=== PATIENT | female | born 1990 | race Caucasian/White ===

== ENCOUNTER 2021-05-14 07:10 | Inpatient (IN) | payer OTHER ==
[2021-05-14 09:06] VITALS: BMI 28.8
[2021-05-14] MEDS ORDERED: OXYTOCIN 30 UNITS in 0.9% NS 30 UNIT/500 ML INFUS.BAG IVPB ONE (09:15)
[2021-05-14 09:29] LABS: BASO % 0.4 % (0-2.0); EOS % 0.6 % (0-4.5); HEMATOCRIT 37.9 % (32.4-45.2); HEMOGLOBIN 13.3 GM/dL (10.7-15.3); LYMPH % 11.4 % (8-40); MCH 34.2 pg (25.7-33.7); MCHC 35.1 g/dl (32.0-36.0); MEAN CELL VOLUME 97.6 fl (80-96); MEAN PLT VOLUME 10.3 fl (7.5-11.1); MONO % 7.7 % (3.8-10.2); NEUT % 79.9 % (42.8-82.8); PLATELET COUNT 143 10^3/uL (134-434); RBC 3.89 M/mm3 (3.60-5.2); RDW 13.4 % (11.6-15.6); WHITE BLOOD COUNT 10.9 K/mm3 (4.0-10.0)
[2021-05-14] MEDS: OXYTOCIN 30 UNITS in 0.9% NS 30 UNIT/500 ML INFUS.BAG IVPB SCH (09:30)
[2021-05-14] MEDS: DEXTROSE 5%-LACTATED RINGERS 1,000 ML IV SCH ×2 (09:30→17:00)
[2021-05-14 09:46] LABS: CALCIUM 8.3 mg/dL (8.5-10.1)
[2021-05-14 09:47] LABS: BLOOD UREA NITROGEN 14.3 mg/dL (7-18)
[2021-05-14 09:50] LABS: CREATININE 0.9 mg/dL (0.55-1.3)
[2021-05-14 10:46] LABS: HIV INTERPRETATION NEGATIVE (NEGATIVE)
[2021-05-14] MEDS ORDERED: PCA PUMP NR ONE (20:29)
[2021-05-14] MEDS ORDERED: FENTANYL/BUPIVACAINE/NS/PF - PCEA - 50 ML DISP.SYRIN EP ONE (20:29)
[2021-05-14] MEDS ORDERED: NALOXONE HCL 0.4 MG/ML VIAL IVPUSH PRN (20:44)
[2021-05-14] MEDS ORDERED: FENTANYL/BUPIVACAINE/NS/PF - PCEA - 50 ML DISP.SYRIN EP SCH (20:45)
[2021-05-14] MEDS ORDERED: BUPIVACAINE HCL/PF 0.25% (2.5MG/ML) 10 ML VIAL ONE (20:49)
[2021-05-15] MEDS ORDERED: OXYTOCIN 20 UNITS in 0.9% NS 20 UNIT/1,000 ML INFUS.BAG IV ONE (00:11)
[2021-05-15] MEDS ORDERED: LIDOCAINE HCL 1% PRESERVATIVE FREE - 30ML VIAL ONE (01:37)
[2021-05-15] MEDS ORDERED: BISACODYL 10 MG SUPP.RECT RC PRN (01:53)
[2021-05-15] MEDS ORDERED: ACETAMINOPHEN 325 MG TABLET (FP) PO PRN (01:53)
[2021-05-15] MEDS ORDERED: BENZOCAINE 20% 57 GM BOTTLE TP PRN (01:53)
[2021-05-15] MEDS ORDERED: METHYLERGONOVINE MALEATE 0.2 MG/1 ML AMP IM PRN (01:53)
[2021-05-15] MEDS ORDERED: WITCH HAZEL 50% (TUCKS) 40 PAD/JAR PAD TP PRN (01:53)
[2021-05-15] MEDS ORDERED: BENZOCAINE 28 GM HEMORRHOIDAL OINTMENT TP PRN (01:53)
[2021-05-15] MEDS ORDERED: OXYTOCIN 20 UNITS in 0.9% NS 20 UNIT/1,000 ML INFUS.BAG IV SCH (02:00)
[2021-05-15 03:20] LABS: CORD BASE EXCESS -4.8 mmol/L (0-2); CORD HCO3 21.2 mmHg (20-29); CORD PCO2 42.7 mmHg (30-78); CORD pH 7.314 (7.14-7.44)
[2021-05-15 03:21] LABS: CORD BASE EXCESS -7.9 mmol/L (0-2); CORD HCO3 19.7 mmHg (20-29); CORD PCO2 47.9 mmHg (30-78); CORD pH 7.233 (7.14-7.44)
[2021-05-15] MEDS: FERROUS SO4 325 MG TABLET (FP) PO SCH ×2 (08:40→17:50)
[2021-05-15] MEDS: IBUPROFEN 600 MG TABLET (FP) PO PRN ×2 (10:03→17:50)
[2021-05-15] MEDS: PRENATAL VITAMINS W/ FOLIC ACID TABLET (FP) PO SCH (10:03)
[2021-05-15] MEDS: DEXTROSE 5%-LACTATED RINGERS 1,000 ML IV SCH (10:47)
[2021-05-15] MEDS: OXYTOCIN 30 UNITS in 0.9% NS 30 UNIT/500 ML INFUS.BAG IVPB SCH (10:48)
[2021-05-16] MEDS: PRENATAL VITAMINS W/ FOLIC ACID TABLET (FP) PO SCH (09:23)
[2021-05-16] MEDS: FERROUS SO4 325 MG TABLET (FP) PO SCH ×2 (09:23→18:08)
[2021-05-16] MEDS: IBUPROFEN 600 MG TABLET (FP) PO PRN ×2 (09:41→22:19)
[2021-05-16 11:50] LABS: BASO % 0.5 % (0-2.0); EOS % 0.5 % (0-4.5); HEMATOCRIT 37.4 % (32.4-45.2); HEMOGLOBIN 13.1 GM/dL (10.7-15.3); LYMPH % 11.4 % (8-40); MCH 34.5 pg (25.7-33.7); MCHC 34.9 g/dl (32.0-36.0); MEAN CELL VOLUME 98.6 fl (80-96); MEAN PLT VOLUME 10.3 fl (7.5-11.1); MONO % 7.4 % (3.8-10.2); NEUT % 80.2 % (42.8-82.8); PLATELET COUNT 167 10^3/uL (134-434); RBC 3.79 M/mm3 (3.60-5.2); RDW 13.4 % (11.6-15.6); WHITE BLOOD COUNT 16.1 K/mm3 (4.0-10.0)
[2021-05-16] MEDS ORDERED: SENNOSIDES/DOCUSATE COMBO (SENNA PLUS) TABLET (UD) PO PRN (22:00)
[2021-05-17] MEDS: FERROUS SO4 325 MG TABLET (FP) PO SCH (09:42)
[2021-05-17] MEDS: PRENATAL VITAMINS W/ FOLIC ACID TABLET (FP) PO SCH (09:42)
[2021-05-17 16:18] VITALS: BP 112/72; PULSE 64; TEMP 97.6
== END 2021-05-17 15:00 | disposition home or self-care (01) | DRG 807 ==
LOC: JLDR 07:10 → J3W 05-15 04:54
PROVIDERS: ADMIT Obstetrics & Gynecology; ATTEND Obstetrics & Gynecology
PROC: 3E033VJ Introduction of Other Hormone into Peripheral Vein, Percutaneous Approach (ICD-10-PCS; 2021-05-14)
PROC: 10E0XZZ Delivery of Products of Conception, External Approach (ICD-10-PCS; principal; 2021-05-15)
PROC: 0HQ9XZZ Repair Perineum Skin, External Approach (ICD-10-PCS; 2021-05-15)
DX: O48.0 Post-term pregnancy (principal); Z37.0 Single live birth; O70.0 First degree perineal laceration during delivery; Z3A.40 40 weeks gestation of pregnancy
CPT/HCPCS: 36415; 36600; 59409; 80048; 82803; 85025; 85730; 86780; 86850; 86900; 86901; 87389; C9803; U0003; U0005

== ENCOUNTER 2023-09-27 07:48 | Inpatient (IN) | payer OTHER ==
[2023-09-27 08:42] VITALS: BMI 29.7
[2023-09-27] MEDS: ELECTROLYTE-148 SOLN 1,000 ML IV SCH ×2 (08:45→12:45)
[2023-09-27 09:19] LABS: BASO % 0.3 % (0-2.0); EOS % 0.8 % (0-4.5); HEMOGLOBIN 13.2 GM/dL (10.7-15.3); LYMPH % 13.7 % (8-40); MCH 32.7 pg (25.7-33.7); MCHC 33.8 g/dl (32.0-36.0); MEAN CELL VOLUME 96.8 fl (80-96); MEAN PLT VOLUME 9.7 fl (7.5-11.1); MONO % 8.3 % (3.8-10.2); NEUT % 76.9 % (42.8-82.8); PLATELET COUNT 157 10^3/uL (134-434); RBC 4.03 M/mm3 (3.60-5.2); RDW 13.6 % (11.6-15.6); WHITE BLOOD COUNT 13.4 K/mm3 (4.0-10.0)
[2023-09-27] MEDS ORDERED: OXYTOCIN 30 UNITS in 0.9% NS 30 UNIT/500 ML INFUS.BAG IVPB SCH (09:30)
[2023-09-27 09:48] LABS: POTASSIUM 3.9 mmol/L (3.5-5.1)
[2023-09-27 09:49] LABS: CALCIUM 8.6 mg/dL (8.5-10.1)
[2023-09-27 09:50] LABS: BLOOD UREA NITROGEN 10.2 mg/dL (7-18)
[2023-09-27 09:53] LABS: CREATININE 0.5 mg/dL (0.55-1.3)
[2023-09-27] MEDS ORDERED: OXYTOCIN 30 UNITS in 0.9% NS 30 UNIT/500 ML INFUS.BAG IVPB ONE (10:09)
[2023-09-27 10:30] LABS: INR 1.05 (0.83-1.09); PROTHROMBIN TIME (PATIENT) 12.2 SEC (9.7-13.0)
[2023-09-27 10:33] LABS: ACTIVATED PTT 29.2 SECONDS (25.2-36.5)
[2023-09-27] MEDS ORDERED: FENTANYL/BUPIVACAINE/NS/PF - PCEA - 50 ML DISP.SYRIN EP ONE ×2 (12:29→16:05)
[2023-09-27] MEDS ORDERED: LIDO 2%/EPI 1:200000 PRESRVFRE (20 ML SDVIAL) ONE (12:32)
[2023-09-27] MEDS ORDERED: BUPIVACAINE HCL/PF 0.25% (2.5MG/ML) 10 ML VIAL ONE (12:32)
[2023-09-27] MEDS: FENTANYL/BUPIVACAINE/NS/PF - PCEA - 50 ML DISP.SYRIN EP SCH ×2 (12:45→16:08)
[2023-09-27] MEDS ORDERED: NALOXONE HCL 0.4 MG/ML VIAL IVPUSH PRN (12:53)
[2023-09-27 16:40] LABS: HIV INTERPRETATION NEGATIVE (NEGATIVE)
[2023-09-27] MEDS ORDERED: LIDOCAINE HCL 1% PRESERVATIVE FREE - 30ML VIAL ONE (17:14)
[2023-09-27] MEDS ORDERED: OXYTOCIN 20 UNITS in 0.9% NS 20 UNIT/1,000 ML INFUS.BAG IV ONE (17:14)
[2023-09-27] MEDS ORDERED: OXYTOCIN 20 UNITS in 0.9% NS 20 UNIT/1,000 ML INFUS.BAG IV SCH (18:00)
[2023-09-27] MEDS ORDERED: oxyCODONE HCL 5 MG TABLET PO PRN (18:00)
[2023-09-27] MEDS ORDERED: WITCH HAZEL 50% (TUCKS) 40 PAD/JAR PAD TP PRN (18:00)
[2023-09-27] MEDS ORDERED: METHYLERGONOVINE MALEATE 0.2 MG/1 ML AMP IM PRN (18:00)
[2023-09-27] MEDS ORDERED: ACETAMINOPHEN 325 MG TABLET (FP) PO PRN (18:00)
[2023-09-27] MEDS ORDERED: BENZOCAINE 20% 57 GM BOTTLE TP PRN (18:00)
[2023-09-27] MEDS ORDERED: BENZOCAINE 28 GM HEMORRHOIDAL OINTMENT TP PRN (18:00)
[2023-09-27] MEDS ORDERED: BISACODYL 10 MG SUPP.RECT RC PRN (18:00)
[2023-09-27 18:30] LABS: CORD BASE EXCESS -1.1 mmol/L (0-2); CORD HCO3 24.5 mmHg (20-29); CORD PCO2 43.8 mmHg (30-78); CORD pH 7.365 (7.14-7.44)
[2023-09-27 18:33] LABS: CORD BASE EXCESS -3.6 mmol/L (0-2); CORD HCO3 25.1 mmHg (20-29); CORD PCO2 60.1 mmHg (30-78); CORD pH 7.239 (7.14-7.44)
[2023-09-28] MEDS: IBUPROFEN 600 MG TABLET (FP) PO PRN ×3 (05:52→23:56)
[2023-09-28 08:34] LABS: BASO % 0.3 % (0-2.0); EOS % 0.3 % (0-4.5); HEMATOCRIT 33.2 % (32.4-45.2); HEMOGLOBIN 11.4 GM/dL (10.7-15.3); LYMPH % 10.3 % (8-40); MCH 33.3 pg (25.7-33.7); MCHC 34.3 g/dl (32.0-36.0); MEAN CELL VOLUME 97.1 fl (80-96); MEAN PLT VOLUME 10.2 fl (7.5-11.1); MONO % 8.3 % (3.8-10.2); NEUT % 80.8 % (42.8-82.8); PLATELET COUNT 131 10^3/uL (134-434); RBC 3.42 M/mm3 (3.60-5.2); RDW 13.5 % (11.6-15.6); WHITE BLOOD COUNT 15.1 K/mm3 (4.0-10.0)
[2023-09-28] MEDS ORDERED: SENNOSIDES/DOCUSATE COMBO (SENNA PLUS) TABLET (UD) PO PRN (22:00)
[2023-09-28] MEDS ORDERED: FERROUS SO4 325 MG TABLET (FP) PO SCH (22:00)
[2023-09-29 08:15] VITALS: RESP 16
[2023-09-29 08:16] VITALS: BP 118/74; PULSE 84; TEMP 97.9
[2023-09-29] MEDS: IBUPROFEN 600 MG TABLET (FP) PO PRN (09:31)
== END 2023-09-29 14:28 | disposition home or self-care (01) | DRG 807 ==
LOC: JLDR 07:48 → J3W 20:10
PROVIDERS: ADMIT Obstetrics & Gynecology; ATTEND Obstetrics & Gynecology
PROC: 0HQ9XZZ Repair Perineum Skin, External Approach (ICD-10-PCS; principal; 2023-09-27)
PROC: 10E0XZZ Delivery of Products of Conception, External Approach (ICD-10-PCS; 2023-09-27)
DX: O70.0 First degree perineal laceration during delivery (principal); Z37.0 Single live birth; Z3A.40 40 weeks gestation of pregnancy
CPT/HCPCS: 36415; 36600; 80048; 82803; 85025; 85610; 85730; 86780; 86850; 86900; 86901; 87389